=== PATIENT | male | born 1950 | race Caucasian/White ===

== ENCOUNTER → 2020-09-23 | Day surgery (SDC) | payer OTHER ==
--- NOTE | 2020-09-18 14:52 | NUR ---
COPY OF LABS AND CXR SENT TO MD AND ANESTHESIA FOR REVIEW.
--- NOTE | 2020-09-18 16:57 | NUR ---
DR PATEL ANESTHESIOLOGIST REVIEWED LABS. ORDER TO BE PLACED FOR STAT BMP ON ADMISSION 09-23-20.
[~2020-09-23] VITALS: Ht 170.2 cm; Wt 90.3 kg
[2020-09-23 07:30] VITALS: BP 150/87
[2020-09-23 07:41] LABS: CALCIUM 9.2 mg/dL (8.5-10.1); CARBON DIOXIDE 24.6 mmol/L (21-32); CHLORIDE SERUM 100 mmol/L (98-107); CREATININE SERUM 0.9 mg/dL (0.7-1.3); GFR1 > 60 mL/min; GLUCOSE SERUM 106 mg/dL (74-106); POTASSIUM SERUM 4.3 mmol/L (3.5-5.1); SODIUM SERUM 135 mmol/L (136-145)
[2020-09-23 18:49] VITALS: BP 138/89
== END | disposition home or self-care (01) ==
LOC: DS 06:22 → OR 08:30
PROVIDERS: ATTEND Student in an Organized Health Care Education/Training Program
DX: M17.0 Bilateral primary osteoarthritis of knee (principal); I10 Essential (primary) hypertension; G47.30 Sleep apnea, unspecified; E66.01 Morbid (severe) obesity due to excess calories; Z68.31 Body mass index [BMI] 31.0-31.9, adult; Z79.899 Other long term (current) drug therapy; Z79.82 Long term (current) use of aspirin
CPT/HCPCS: 97112-GP; C1713; C1776; J0690; J1170; J1885; J2250; J2405; J2704; J3010; J7120